=== PATIENT | male | born 1950 | race Caucasian/White ===

== ENCOUNTER 2017-12-03 07:40 | Outpatient (CLI) | payer OTHER ==
[2017-12-03 08:31] LABS: eGFR (African) > 60; eGFR (Non-African) > 60
== END 2017-12-03 07:45 ==
LOC: LAB 07:40
PROVIDERS: ATTEND Family Medicine
DX: Z13.6 Encounter for screening for cardiovascular disorders (principal)
CPT/HCPCS: 36415; 80053; 80061

== ENCOUNTER 2018-04-09 11:53 | Emergency (ER) | payer OTHER | END 2018-04-09 12:05 | disposition left against medical advice (07) | LOC: ED 11:53 | DX: Z53.21 Procedure and treatment not carried out due to patient leaving prior to being seen by health care provider (principal) | CPT/HCPCS: 99281 ==

== ENCOUNTER 2018-07-08 10:44 | Outpatient (CLI) | payer OTHER ==
--- NOTE | 2018-07-08 14:19 | Diagnostic Imaging Report ---
ROB LEE [facility] [id number] [address] [id number] Report Submission Date: Jul 08, 2018 12:19:17 PM DIAGNOSTIC TECH Patient Study Name: PHILIP HITCHCOCK Date: Jul 08, 2018 11:24:29 AM DIAGNOSTIC TECH Modality Type: US Gender: M Description: US AAA SCREEN MEDICARE : 46 Institution: [facility] Physician: ROB LEE Examination: Ultrasound aorta History: Evaluate for aneurysm AAA Comparison exams: None available Findings: Proximal aorta measures 2.4 cm maximally. Mid aorta measures 2.1 cm maximally. Distal aorta measures 1.7 cm maximally. Iliac vessels measure 1.2 cm. Mild peripheral calcification. Impression: No evidence for abdominal aortic aneurysm Electronically signed on Jul 08, 2018 12:19:17 PM DIAGNOSTIC TECH by: Jason KAY
== END 2018-07-08 10:46 ==
LOC: RAD 10:44
PROVIDERS: ATTEND Family Medicine
DX: Z13.6 Encounter for screening for cardiovascular disorders (principal)